=== PATIENT | male | born 1985 | race Caucasian/White ===

== ENCOUNTER 2020-01-31 03:19 | Emergency (ER) | payer OTHER ==
[~2020-01-31] VITALS: Ht 175.3 cm; Wt 108.9 kg
[2020-01-31 03:25] VITALS: BP_SYST 145
[2020-01-31] MEDS ORDERED: cefTRIAXone 1 GM in LIDOCAINE 1%, 20 ML MDV 2.1 ML IM ONE (05:00)
[2020-01-31 05:19] VITALS: BP_SYST 135
== END 2020-01-31 05:10 | disposition home or self-care (01) ==
LOC: SED 03:19
DX: H66.93 Otitis media, unspecified, bilateral (principal); H60.93 Unspecified otitis externa, bilateral; R42 Dizziness and giddiness
CPT/HCPCS: 70450; 96372; 99284; J0696; J2001

== ENCOUNTER 2022-09-06 19:48 | Emergency (ER) | payer OTHER ==
[~2022-09-06] VITALS: Ht 177.8 cm; Wt 122.5 kg
[2022-09-06 20:34] VITALS: BP_SYST 122
--- NOTE | 2022-09-06 20:40 | NUR ---
Patient triaged and placed in waiting room. VSS and patient appears in no acute distress at this time. Accompanied by SELF, awaiting available bed, and MD notified of need for MSE.
[2022-09-06 21:54] LABS: BASOPHILS % (AUTO) 0.3 % (0.0-2.0); EOSINOPHILS # (AUTO) 0.1 K/uL (0.0-0.4); EOSINOPHILS % (AUTO) 1.7 % (0.0-4.0); HEMATOCRIT 40.3 % (36-54); HEMOGLOBIN 13.5 g/dL (14.0-18.0); LYMPHOCYTES # (AUTO) 2.5 K/uL (1.0-5.5); LYMPHOCYTES % (AUTO) 33.3 % (20.5-51.5); MEAN CORPUSCULAR HEMOGLOBIN 31 pg (27-31); MEAN CORPUSCULAR HGB CONC 34 % (32-36); MEAN CORPUSCULAR VOLUME 91 fL (79.0-98.0); MONOCYTES # (AUTO) 0.9 K/uL (0.0-1.0); MONOCYTES % (AUTO) 11.3 % (1.7-9.3); NEUTROPHILS # (AUTO) 4.1 K/uL (1.8-7.7); NEUTROPHILS % (AUTO) 53.4 % (40.0-70.0); PLATELET COUNT (AUTO) 244 K/uL (130-430); RED BLOOD CELL COUNT(AUTO) 4.43 MIL/uL (4.2-6.2); RED CELL DISTRIBUTION WIDTH 13.2 % (9.0-15.0); WHITE BLOOD COUNT (AUTO) 7.6 K/uL (4.8-10.8)
[2022-09-06 22:03] LABS: ALANINE AMINOTRANSFERASE 62 U/L (12-78); ALBUMIN 3.8 g/dL (3.4-4.8); ANION GAP 7 (5-15); ASPARTATE AMINOTRANSFERASE 21 U/L (10-37); CALCIUM 9.2 mg/dL (8.4-11.0); CHLORIDE 105 mmol/L (98-107); CREATININE 1.33 mg/dL (0.55-1.30); GLUCOSE 90 mg/dL (70-99); TOTAL BILIRUBIN 0.4 mg/dL (0.0-1.0); UREA NITROGEN, BLOOD 13 mg/dL (8-21)
[2022-09-06 22:04] LABS: ERYTHROCYTE SEDIMENTATION RATE 5 MM/HR (0-15)
[2022-09-06 22:07] LABS: C-REACTIVE PROTEIN QUANT < 0.2 mg/dL (0-0.5); GFR AFRICAN AMERICAN 78 mL/min (>90)
--- NOTE | 2022-09-06 22:10 | NUR ---
Patient to [facility] for evaluation. Side rails up.
--- NOTE | 2022-09-06 22:15 | NUR ---
ER at bedside examining patient.
--- NOTE | 2022-09-06 22:24 | NUR ---
Patient given written and verbal discharge instructions by Dr Odom and verbalizes understanding. ER MD discussed with patient the results and treatment provided. Patient in stable condition. ID arm band removed. no Rx of given. Patient educated on pain management and to follow up with PMD. Pain Scale 0/10. Opportunity for questions provided and answered. Medication side effect fact sheet provided.
[2022-09-06 22:26] VITALS: BP_SYST 119
== END 2022-09-06 22:26 | disposition home or self-care (01) ==
LOC: SED 19:48
DX: G44.209 Tension-type headache, unspecified, not intractable (principal); I10 Essential (primary) hypertension; Z79.899 Other long term (current) drug therapy
CPT/HCPCS: 36415; 70450-TC; 76376; 80053; 85025; 85651-TC; 86140; 99284

== ENCOUNTER 2023-06-17 09:48 | Emergency (ER) | payer OTHER ==
[~2023-06-17] VITALS: Ht 180.3 cm; Wt 122.5 kg
[2023-06-17 09:57] VITALS: BP_SYST 126; PULSE 80; RESP 18; TEMP 98.3; O2SAT 98
[2023-06-17] MEDS ORDERED: KETOROLAC TROMETHAMINE 30 MG VIAL IVP ONE (10:15)
[2023-06-17] MEDS ORDERED: ONDANSETRON 4 MG ODT TAB PO ONE (10:15)
[2023-06-17 11:04] LABS: BASOPHILS % (AUTO) 0.4 % (0.0-2.0); EOSINOPHILS # (AUTO) 0.1 K/uL (0.0-0.4); EOSINOPHILS % (AUTO) 0.9 % (0.0-4.0); HEMATOCRIT 40.6 % (36-54); LYMPHOCYTES # (AUTO) 1.3 K/uL (1.0-5.5); LYMPHOCYTES % (AUTO) 22.6 % (20.5-51.5); MEAN CORPUSCULAR HEMOGLOBIN 31 pg (27-31); MEAN CORPUSCULAR HGB CONC 34 % (32-36); MEAN CORPUSCULAR VOLUME 89 fL (79.0-98.0); MONOCYTES # (AUTO) 0.7 K/uL (0.0-1.0); MONOCYTES % (AUTO) 12.3 % (1.7-9.3); NEUTROPHILS # (AUTO) 3.7 K/uL (1.8-7.7); NEUTROPHILS % (AUTO) 63.8 % (40.0-70.0); PLATELET COUNT (AUTO) 235 K/uL (130-430); RED BLOOD CELL COUNT(AUTO) 4.57 MIL/uL (4.2-6.2); RED CELL DISTRIBUTION WIDTH 12.8 % (9.0-15.0); WHITE BLOOD COUNT (AUTO) 5.8 K/uL (4.8-10.8)
[2023-06-17 11:07] LABS: CALCIUM 9.1 mg/dL (8.4-11.0); CREATININE 1.16 mg/dL (0.55-1.30); POTASSIUM 3.7 mmol/L (3.5-5.1)
[2023-06-17 11:09] LABS: ALBUMIN 3.6 g/dL (3.4-4.8); BILIRUBIN,DIRECT 0.1 mg/dL (0.0-0.3); TOTAL BILIRUBIN 0.4 mg/dL (0.0-1.0); TOTAL PROTEIN, SERUM 7.4 g/dL (6.4-8.3)
[2023-06-17 11:12] LABS: BILIRUBIN,URINE NEGATIVE (NEGATIVE); BLOOD, URINE 3+ (NEGATIVE); CLARITY/URINE CLEAR (CLEAR); COLOR,URINE YELLOW (YELLOW); GLUCOSE,URINE NEGATIVE (NEGATIVE); KETONES,URINE NEGATIVE (NEGATIVE); LEUKOCYTE ESTERASE ,URINE NEGATIVE (NEGATIVE); NITRITE, URINE NEGATIVE (NEGATIVE); PROTEIN URINE TRACE (NEGATIVE); UROBILINOGEN,URINE 0.2 (0.2-1.0)
[2023-06-17 11:27] LABS: WBC,URINE 0-3 /HPF (0-3)
[2023-06-17 11:28] LABS: BACTERIA,URINE FEW /HPF (None Seen)
[2023-06-17] MEDS ORDERED: ONDANSETRON 4 MG ODT TAB ONE (13:21)
[2023-06-17] MEDS ORDERED: KETOROLAC TROMETHAMINE 30 MG VIAL ONE (13:21)
[2023-06-17] MEDS ORDERED: ONDA-8 TL (13:36)
[2023-06-17] MEDS ORDERED: CIPR500T5 PO (13:36)
[2023-06-17 18:44] VITALS: BP_SYST 126; PULSE 80; RESP 18; TEMP 98.3; O2SAT 98
== END 2023-06-17 18:44 | disposition home or self-care (01) ==
LOC: SED 09:48
DX: I88.0 Nonspecific mesenteric lymphadenitis (principal); R10.30 Lower abdominal pain, unspecified; K52.9 Noninfective gastroenteritis and colitis, unspecified; R31.29 Other microscopic hematuria; R11.0 Nausea; I10 Essential (primary) hypertension; Z79.899 Other long term (current) drug therapy
CPT/HCPCS: 99285; 74176; 96374; 80076; 80048; 81001; 83690; 85025; 87086; 36415; 76376; 81000; 81015; Q0162; J1885